=== PATIENT | female | born 1945 | race Caucasian/White ===

== ENCOUNTER 2024-12-28 21:50 | Emergency (ER) | payer OTHER ==
[~2024-12-28] VITALS: Ht 167.6 cm; Wt 91.0 kg
--- NOTE | 2024-12-28 22:24 | ED.PDOC ---
Back pain HPI HPI Comments 79y F who presents to the ED via EMS for chief complaint of neck pain. Per EMS, pt has been having neck pain for the past "days and weeks" and called EMS. Pt states she called EMS after she has noticed increased pain radiating to the L side of her jaw, and L side of her head with associated nausea. Pt states she has also noted over the past few days, she has been short of breath when going to mailbox to get her mail. Pt in the ED ,rates her neck pain 4/10, with noted exacerbation of pain with movement and no relieving factors. Pt otherwise states she has history of COPD, HTN, HLD and DVT. Pt states she was placed on eliquis but states the medication became expensive so she did not fill her perscription and instead has been taking aspirin. Patient declined any pain medication while at the facility today. Pt otherwise denies any other symptoms at this time. Time Seen by MD: 22:20 Reviewed Notes: Nurses Notes, Certified Physician'S Assistant Notes Allergies: Coded Allergies: NO KNOWN ALLERGIES (Unverified , 12/28/24) Information Source: Patient, Emergency Med Personnel Mode of Arrival: EMS Timing: Days Duration: Since onset Severity: Moderate Prehospital treatment: Pain Meds Quality: Aching, Sharp Onset: Spontaneous History of: None (Recent chronic neck pain) Past Medical History PAST MEDICAL HISTORY: COPD, High Lipids, HTN Past Medical History (Other): DVT, recent chronic neck pain Surgical History: Unknown MANAGER CORE History: Unknown Family History Family History: Reviewed,noncontributory to illness Social History Smoker: Non-Smoker Alcohol: Denies ETOH Use Drugs: Denies Drug Use Lives In: Home Constitutional: denies: chills, diaphoresis, fatigue, fever, malaise, sweats, weakness, others EENTM: denies: blurred vision, double vision, ear bleeding, ear discharge, ear drainage, ear pain, ear ringing, eye pain, eye redness, hearing loss, mouth pain, mouth swelling, nasal discharge, nose bleeding, nose congestion, nose pain, photophobia, tearing, throat pain, throat swelling, voice changes, others Respiratory: denies: cough, hemoptysis, orthopnea, SOB at rest, shortness of breath, SOB with excertion, stridor, wheezing, others Cardiovascular: denies: chest pain, dizzy spells, diaphoresis, Dyspnea on exertion, edema, irregular heart beat, left arm pain, lightheadedness, palpitations, PND, syncope, others Gastrointestinal: reports: nausea; denies: abdomen distended, abdominal pain, blood streaked bowels, constipated, diarrhea, dysphagia, difficulty swallowing, hematemesis, melena, poor appetite, poor fluid intake, rectal bleeding, rectal pain, vomiting, others Genitourinary: denies: abnormal vagina bleeding, burning, dyspareunia, dysuria, flank pain, frequency, hematuria, incontinence, pain, , vagina discharge, urgency, others Neurological: denies: dizziness, fainting, headache, left sided numbness, left sided weakness, numbness, paresthesia, pre-existing deficit, right sided numbness, right sided weakness, seizure, speech problems, tingling, tremors, weakness, others Musculoskeletal: reports: neck pain; denies: back pain, gout, joint pain, joint swelling, muscle pain, muscle stiffness, others Integumetry: denies: bruises, change in color, change in hair/nails, dryness, laceration, lesions, lumps, rash, wounds, others Allergic/Immunocompromised: denies: Difficulty Healing, Frequent Infections, Hives, Itching, others Hematologic/Lymphatic: denies: anemia, blood clots, easy bleeding, easy bruising, swollen glands, others Endocrine: denies: excessive hunger, excessive sweating, excessive thirst, excessive urination, flushing, intolerance to cold, intolerance to heat, unexp lained weight gain, unexplained weight loss, others Psychiatric: denies: anxiety, bipolar disorder, depression, hopeless, panic disorder, schizophrenia, sleepless, suicidal, others All Other Systems: Reviewed and Negative Physical Exam General Appearance: Moderate Distress ( due to neck pain concerns), Normal HEENT: Normal ENT Inspection, Pharynx Normal, TMs Normal Neck: Other ( diffuse bilateral posterior tenderness to palpation throughout cervical spine. Moderate hypertonicity appreciated. Moderate reduced range of motion. No step-offs noted. No crepitus.) Respiratory: Chest Non-Tender, Lungs Clear, No Accessory Muscle Use, No Respiratory Distress, Normal Breath Sounds Cardiovascular: No Edema, No JVD, No Murmur, No Gallop, Normal Peripheral Pulses, Regular Rate/Rhythm Breast Exam: Deferred Gastrointestinal: No Organomegaly, Non Tender, No Pulsatile Mass, Normal Bowel Sounds, Soft Genitalia: Deferred Pelvic: Deferred Rectal: Deferred Extremities: No calf tenderness, Normal capillary refill, Normal inspection, Normal range of motion, Non-tender, No pedal edema Neurologic: Alert, No Motor Deficits, Normal Affect, Normal Mood, No Sensory Deficits Cerebellar Function: Normal Reflexes: Normal Skin: Dry, Normal Color, Warm Lymphatic: No Adenopathy Was a procedure done? Was a procedure done?: No Back Pain Differential Dx Differential Diagnosis: DJD, Musculoskeletal Pain Other Differential Diagnosis DJD, muscle strain,spasm, spinal stenosis X-Ray, Labs, Meds, VS Vital Signs Date Time Temp Pulse Resp B/P (MAP) Pulse Ox O2 Delivery O2 Flow Rate FiO2 12/29/24 00:31 98.0 73 18 138/66 (90) 91 98.0 12/29/24 00:30 73 18 91 Room Air* 0 21 12/28/24 21:50 97.8 76 20 183/91 (121) 94 X-Ray, Labs, Meds, VS Comment All studies performed the ED were evaluated by me personally. Imaging studies of the cervical spine revealed advanced degenerative changes at C2 -C3 as well as C4-C5 causing moderate neural foraminal and spinal canal stenosis. No acute fractures noted. Patient has been advised to follow up with the primary care provider for discussions related to these findings. Patient may benefit from some physical therapy. Time of 1ST Reevaluation: 01:02 Reevaluation 1ST: Unchanged Consultation: PCP Patient Education/Counseling: Diagnosis, Treatment Family Education/Counseling: Diagnosis, Treatment, No Family Present Departure 1 Departure Time of Disposition: 01:03 Impression: Primary Impression: Degenerative joint disease of cervical spine Additional Impressions: Spinal stenosis in cervical region Cervical radiculopathy Disposition: 01 HOME / SELF CARE / HOMELESS Condition: Stable Additional Instructions: Advised patient utilize Tylenol and or Motrin as needed for pain relief. Patient should follow up with the primary care provider for discussions related to today's findings. Discharged With: Self, Friend Critical Care Note Critical Care Time?: No Stability Stability form required: No Heart Score Heart Score: Heart Score Response (Comments) Value History N/A 0 EKG N/A 0 Age N/A 0 Risk Factors N/A 0 Troponin N/A 0 Total 0 I personally scribed for BERYL PIKE PAC ([facility]) on 12/28/24 at 22:24. Electronically submitted by Christine Clinton ([email or web address]). BERYL PKIE PAC Dec 28, 2024 22:24
[2024-12-29 00:30] VITALS: PULSE 73; RESP 18; O2SAT 91
[2024-12-29 00:31] VITALS: BP 138/66; PULSE 73; RESP 18; TEMP 98; O2SAT 91
--- NOTE | 2024-12-29 00:31 | DVH ---
INDICATION: Pain / radiculopathy COMPARISON: None TECHNIQUE: 3 views of the cervical spine were obtained. FINDINGS: The cervical vertebral alignment is normal. The predental space is normal. a advanced degenerative changes at C2-C3 through C4-C5 causing moderate neural foraminal and spinal c anal stenosis. No acute fracture, vertebral compression deformity or aggressive osseous lesions. The imaged lung apices are unremarkable. IMPRESSION: No acute fracture.
== END 2024-12-29 01:04 | disposition home or self-care (01) ==
LOC: ER 21:50 → EDBD 21:50 → ER 12-29 01:04
DX: M47.812 Spondylosis without myelopathy or radiculopathy, cervical region (principal); M48.02 Spinal stenosis, cervical region; M54.12 Radiculopathy, cervical region; I10 Essential (primary) hypertension; J44.9 Chronic obstructive pulmonary disease, unspecified; E78.5 Hyperlipidemia, unspecified; G89.29 Other chronic pain; Z86.718 Personal history of other venous thrombosis and embolism
CPT/HCPCS: 72040